=== PATIENT | female | born 1980 ===

== ENCOUNTER 2019-02-18 08:33 | Outpatient (RCR) | payer MEDICARE | END 2019-03-03 | disposition home or self-care (01) | LOC: WCC 08:33 | DX: S87 Crushing injury of lower leg (principal); G90.521 Complex regional pain syndrome I of right lower limb; X58.XXXS Exposure to other specified factors, sequela; Z79.899 Other long term (current) drug therapy; I10 Essential (primary) hypertension; F32.9 Major depressive disorder, single episode, unspecified; F17.200 Nicotine dependence, unspecified, uncomplicated; Z88.0 Allergy status to penicillin | CPT/HCPCS: 71046; G0277; G0463 ==

== ENCOUNTER 2019-02-18 10:04 | Outpatient (CLI) | payer MEDICARE ==
--- NOTE | 2019-02-18 10:34 | Diagnostic Imaging Report ---
Indication: Cough Technique: 2 views of the chest Comparison: none Findings: Minimal atelectasis or scar is seen in the left lung base. Lungs and pleural spaces are otherwise clear. The heart size is normal Impression: Minimal left basilar atelectasis versus scarring. No acute process otherwise
== END 2019-02-18 12:04 | disposition home or self-care (01) ==
LOC: RAD 10:04
DX: R05 Cough (principal)
CPT/HCPCS: 71046